=== PATIENT | male | born 1945 | race Hispanic/Latino ===

== ENCOUNTER 2017-01-31 08:23 | Outpatient (CLI) | payer MEDICARE ==
--- NOTE | 2017-01-31 10:35 | MRI ---
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 FINDINGS: Images demonstrate no evidence of intracranial masses or lesions. No evidence of areas of diffusion r estriction seen. No evidence of abnormal areas of intracranial enhancement seen. No evidence of abnor malities seen in the major intracranial flow voids. IMPRESSION: Unremarkable pre and post contrast enhanced MRI images of the brain. POS: AMADEO
[2017-01-31] MEDS ORDERED: Gadobenate Dimeglumine 529 MG/1 ML (20ML VIAL) ONE (17:33)
== END 2017-01-31 08:24 | disposition home or self-care (01) ==
LOC: MRI 08:23
PROVIDERS: ATTEND Psychiatry & Neurology Neurology
DX: G31.1 Senile degeneration of brain, not elsewhere classified (principal)
CPT/HCPCS: 70553; A9579

== ENCOUNTER 2017-11-06 09:30 | Outpatient (CLI) | payer MEDICARE ==
--- NOTE | 2017-11-06 11:53 | RAD ---
PA AND LATERAL CHEST: Date: 11/06/17 COMPARISON: 06/01/14 study. FINDINGS: Heart size is enlarged. There are postop sternotomy changes. Lungs show chronic change. Very large hi atal hernia is present. IMPRESSION: 1. Cardiomegaly. 2. Large hiatal hernia. 3. Stable chronic-appearing lung change. POS: BEL
== END 2017-11-06 09:31 | disposition home or self-care (01) ==
LOC: RAD 09:30
PROVIDERS: ATTEND Internal Medicine Critical Care Medicine
DX: R06.00 Dyspnea, unspecified (principal); I51.7 Cardiomegaly; K44.9 Diaphragmatic hernia without obstruction or gangrene
CPT/HCPCS: 71046